=== PATIENT | female | born 1995 | race African-American/Black ===

== ENCOUNTER 2016-09-03 07:09 | Emergency (ER) | payer OTHER ==
[2016-09-03 07:20] VITALS: BMI 22.1
--- NOTE | 2016-09-03 07:32 | PDOC ---
History of Present Illness - General History Source: Patient Exam Limitations: No Limitations - History of Present Illness Initial Comments: 09/03/16 07:55 The patient is a 20 year old female, with a significant past medical history of a prior right hand injury, who presents to the emergency department with generalized weakness and tingling on the right hand over the last couple of days. She describes her generalized weakness as a tiresome sensation throughout her body. She describes her right hand tingling as intermittent in nature, which is exacerbated when she doesn't move it and relieved when she does. She does not remember the last time she had her menstrual period as she has been on control. She denies any other kind of complaints. The patient denies chest pain, shortness of breath, headache and dizziness. Denies fever, chills, nausea, vomit, diarrhea and constipation. Denies dysuria, frequency, urgency and hematuria. 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 s/p abnormal pap smear) Social history: No alcohol, tobacco or drug use reported <Wilfred Thompson - Last Filed: 09/03/16 07:55> - General History Source: Patient, Old Records Exam Limitations: No Limitations <Vernell Dailey - Last Filed: 09/03/16 09:10> - General Chief Complaint: Weakness Stated Complaint: RT HAND NUMBNESS, WEAKNESS Time Seen by Provider: 09/03/16 07:23 Past History <Wilfred Thompson - Last Filed: 09/03/16 07:55> - Past Medical History Anemia: No Asthma: No Cancer: No Cardiac Disorders: No CVA: No COPD: No CHF: No Dementia: No Diabetes: No GI Disorders: No Disorders: No HTN: No Hypercholesterolemia: No Liver Disease: No Seizures: No Thyroid Disease: No Other medical history: DENIES. - Immunization History Immunization Up to Date: Yes - Psycho/Social/Smoking Cessation Hx Anxiety: No Suicidal Ideation: No Smoking History: Never smoked Have you smoked in the past 12 months: No Hx Alcohol Use: No Drug/Substance Use Hx: No Substance Use Type: None Hx Substance Use Treatment: No <Vernell Dailey - Last Filed: 09/03/16 09:10> - Past Medical History Allergies/Adverse Reactions: Allergies Allergy/AdvReac Type Severity Reaction Status Date / Time No Known Drug Allergies Allergy Verified 09/03/16 07:13 Home Medications: Ambulatory Orders NK [No Known Home Medication] 09/03/16 Review of Systems - Review of Systems Able to Perform ROS?: Yes Comments:: 09/03/16 07:56 GENERAL/CONSTITUTIONAL: +Generalized weakness. No fever or chills. HEAD, EYES, EARS, NOSE AND THROAT: No change in vision. No ear pain or discharge. No sore throat. CARDIOVASCULAR: No chest pain or shortness of breath RESPIRATORY: No cough, wheezing, or hemoptysis. GASTROINTESTINAL: No nausea, vomiting, diarrhea or constipation. GENITOURINARY: No dysuria, frequency, or change in urination. MUSCULOSKELETAL: No joint or muscle swelling or pain. No neck or back pain. SKIN: No rash NEUROLOGIC: +Right hand tingling. No headache, vertigo, loss of consciousness. ENDOCRINE: No increased thirst. No abnormal weight change HEMATOLOGIC/LYMPHATIC: No anemia, easy bleeding, or history of blood clots. ALLERGIC/IMMUNOLOGIC: No hives or skin allergy. <Wilfred Thompson - Last Filed: 09/03/16 07:55> *Physical Exam - Vital Signs Last Vital Signs Temp Pulse Resp BP Pulse Ox 98.2 F 99 H 19 118/86 99 09/03/16 07:14 09/03/16 07:14 09/03/16 07:14 09/03/16 07:14 09/03/16 07:14 - Physical Exam Comments: 09/03/16 07:56 GENERAL: Awake, alert, and fully oriented, in no acute distress HEAD: No signs of trauma, normocephalic, atraumatic EYES: PERRLA, EOMI, sclera anicteric, conjunctiva clear ENT: Auricles normal inspection, hearing grossly normal, nares patent, oropharynx clear without exudates. Moist mucosa NECK: Normal ROM, supple, no lymphadenopathy, JVD, or masses LUNGS: No distress, speaks full sentences, clear to auscultation bilaterally HEART: Regular rate and rhythm, normal S1 and S2, no murmurs, rubs or gallops, peripheral pulses normal and equal bilaterally. ABDOMEN: Soft, nontender, normoactive bowel sounds. No guarding, no rebound. No masses EXTREMITIES: Normal inspection, Normal range of motion, no edema. No clubbing or cyanosis. NEUROLOGICAL: Cranial nerves II through XII grossly intact. Normal speech, normal gait, no focal sensorimotor deficits SKIN: Warm, Dry, normal turgor, no rashes or lesions noted. <Wilfred Thompson - Last Filed: 09/03/16 07:55> - Vital Signs Last Vital Signs Temp Pulse Resp BP Pulse Ox 98.2 F 99 H 19 118/86 99 09/03/16 07:14 09/03/16 07:14 09/03/16 07:14 09/03/16 07:14 09/03/16 07:14 <Vernell Dailey - Last Filed: 09/03/16 09:10> ED Treatment Course - LABORATORY CBC & Chemistry Diagram: 09/03/16 08:03 09/03/16 08:03 <Vernell Dailey - Last Filed: 09/03/16 09:10> Medical Decision Making - Medical Decision Making 09/03/16 07:51 20-year-old female with no significant past medical history who presents to the emergency department with complaints of generalized weakness 2 days and intermittent tingling to her right hand the same period of time. Differential diagnosis includes but is not limited to: , anemia, electrolyte abnormality, cervical radiculopathy, toxic/metabolic derangement. Plan: 1. Urine analysis and urine 2. Labs 3. Observe and reevaluate 09/03/16 09:05 Addendum: The labs are reviewed and are noted in the EMR. Discussed the results of all of the patient's labs with her. The urine analysis shows white blood cells and red blood cells and moderate epithelial cells but is negative for nitrite and the patient is asymptomatic therefore will not treat for urinary tract infection. The plan is to discharge the patient home. She should follow- up with her primary care physician and I have advised her to do so. I have also advised her to return to the emergency department if her symptoms persist, worsen, or new symptoms arise. <Vernell Dailey - Last Filed: 09/03/16 09:10> *DC/Admit/Observation/Transfer - Attestations Scribe Attestion: 09/03/16 07:57 Documentation prepared by Wilfred Thompson, acting as medical laboratory assistant for Vernell Dailey MD <JayWilfred Rivas - Last Filed: 09/03/16 07:55> - Discharge Dispostion Admit: No - Attestations Physician Attestion: 09/03/16 07:54 I, Dr. Vernell Dailey, attest that the scribes documentation that appears above has been prepared under my direction and personally reviewed by me in its entirety. I confirmed that the note above accurately reflects all work, treatment, procedures, and medical decision-making performed by me. <Vernell Dailey - Last Filed: 09/03/16 09:10> Diagnosis at time of Disposition: Weakness Hand tingling Qualifiers: Laterality: right Qualified Code(s): R20.2 - Paresthesia of skin - Discharge Dispostion Disposition: HOME Condition at time of disposition: Stable - Referrals Referrals: Lj Ha MD [Primary Care Provider] - - Patient Instructions Additional Instructions: Follow-up with your primary care physician. Return to the ED if your symptoms persist, worsen or new symptoms arise. - Post Discharge Activity Work/School Note: Back to School
[2016-09-03 08:19] LABS: BASOPHIL 0.8 % (0-2.0); EOSINOPHIL 7.1 % (0-4.5); MCH 30.6 pg (25.7-33.7); MCHC 34.2 g/dl (32.0-36.0); MEAN CELL VOLUME 89.4 fl (80-96); MEAN PLT VOLUME 8.3 fl (7.5-11.1); NEUTROPHILS 49.4 % (42.8-82.8); PLATELET COUNT 188 K/MM3 (134-434); RDW 12.8 % (11.6-15.6); WHITE BLOOD COUNT 6.1 K/mm3 (4.0-10.0)
[2016-09-03 08:32] LABS: URINE APPEARANCE CLOUDY; URINE BILIRUBIN NEGATIVE (NEGATIVE); URINE COLOR YELLOW; URINE GLUCOSE (UA) NEGATIVE (NEGATIVE); URINE KETONE NEGATIVE (NEGATIVE); URINE NITRITE NEGATIVE (NEGATIVE); URINE PROTEIN NEGATIVE (NEGATIVE); URINE UROBILINOGEN NEGATIVE E.U./dl (0.2-1.0)
[2016-09-03 08:46] LABS: URINE BLOOD 1+ (NEGATIVE); URINE LEUK ESTERASE 3+ (NEGATIVE)
[2016-09-03 08:48] LABS: CALCIUM 8.9 mg/dL (8.5-10.1); CREATININE 0.8 mg/dL (0.55-1.02); MAGNESIUM 2.1 mg/dL (1.8-2.4); PHOSPHOROUS 3.3 mg/dL (2.5-4.9)
[2016-09-03 08:52] LABS: URINE BACTERIA RARE /hpf (NONE SEEN); URINE MUCUS FEW; URINE RBC 12 /hpf (0-3); URINE WBC 37 /hpf (3-5)
[2016-09-03 09:49] VITALS: BP 118/78; PULSE 86; TEMP 98.3
== END 2016-09-03 09:49 | disposition home or self-care (01) ==
LOC: JER 07:09
DX: R20.2 Paresthesia of skin (principal)
CPT/HCPCS: 36415; 80048; 81003; 81015; 83735; 84100; 84703; 85025; 99282-25

== ENCOUNTER 2020-12-29 02:50 | Inpatient (IN) | payer OTHER ==
[2020-12-29 06:11] VITALS: BMI 32.5
[2020-12-29] MEDS ORDERED: PROMETHAZINE HCL 25 MG/1 ML VIAL IVPB ONE (07:30)
[2020-12-29] MEDS ORDERED: ELECTROLYTE-148 SOLN 1,000 ML IV SCH (07:30)
[2020-12-29] MEDS ORDERED: BUTORPHANOL TARTRATE 2 MG/ML VIAL IVPB ONE (07:30)
[2020-12-29] MEDS ORDERED: BUTORPHANOL TARTRATE 2 MG/ML VIAL ONE (07:33)
[2020-12-29] MEDS ORDERED: PROMETHAZINE HCL 25 MG/1 ML VIAL ONE (07:34)
[2020-12-29 09:15] LABS: BASO % 0.6 % (0-2.0); EOS % 0.2 % (0-4.5); HEMATOCRIT 39.4 % (32.4-45.2); HEMOGLOBIN 13.3 GM/dL (10.7-15.3); LYMPH % 7.9 % (8-40); MCH 29.3 pg (25.7-33.7); MCHC 33.8 g/dl (32.0-36.0); MEAN CELL VOLUME 86.7 fl (80-96); MEAN PLT VOLUME 8.7 fl (7.5-11.1); MONO % 6.1 % (3.8-10.2); NEUT % 85.2 % (42.8-82.8); PLATELET COUNT 162 10^3/uL (134-434); RBC 4.54 M/mm3 (3.60-5.2); RDW 13.8 % (11.6-15.6); WHITE BLOOD COUNT 12.7 K/mm3 (4.0-10.0)
[2020-12-29 09:22] LABS: INR 0.94 (0.83-1.09); PROTHROMBIN TIME (PATIENT) 11.6 SEC (9.7-13.0)
[2020-12-29 09:25] LABS: ACTIVATED PTT 24.8 SECONDS (25.2-36.5)
[2020-12-29 09:40] LABS: CALCIUM 9.2 mg/dL (8.5-10.1)
[2020-12-29 09:41] LABS: BLOOD UREA NITROGEN 6.5 mg/dL (7-18)
[2020-12-29 09:44] LABS: CREATININE 0.4 mg/dL (0.55-1.3)
[2020-12-29] MEDS ORDERED: OXYTOCIN 30 UNITS in 0.9% NS 30 UNIT/500 ML INFUS.BAG IVPB SCH (09:45)
[2020-12-29] MEDS ORDERED: BUPIVACAINE HCL/PF 0.25% (2.5MG/ML) 10 ML VIAL ONE (10:36)
[2020-12-29] MEDS ORDERED: FENTANYL/BUPIVACAINE/NS/PF - PCEA - 50 ML DISP.SYRIN EP ONE (10:47)
[2020-12-29] MEDS ORDERED: NALOXONE HCL 0.4 MG/ML VIAL IVPUSH PRN (12:26)
[2020-12-29] MEDS ORDERED: FENTANYL/BUPIVACAINE/NS/PF - PCEA - 50 ML DISP.SYRIN EP SCH ×2 (12:30→13:35)
[2020-12-29] MEDS ORDERED: OXYTOCIN 20 UNITS in 0.9% NS 20 UNIT/1,000 ML INFUS.BAG IV ONE (13:30)
[2020-12-29] MEDS ORDERED: CEFAZOLIN 2 GM/D5W 2 GM/50 ML ML IVPB ONE (14:18)
[2020-12-29] MEDS ORDERED: WITCH HAZEL 50% (TUCKS) 40 PAD/JAR PAD TP PRN (14:41)
[2020-12-29] MEDS ORDERED: BENZOCAINE 20% 57 GM BOTTLE TP PRN (14:41)
[2020-12-29] MEDS ORDERED: BENZOCAINE 28 GM HEMORRHOIDAL OINTMENT TP PRN (14:41)
[2020-12-29] MEDS ORDERED: METHYLERGONOVINE MALEATE 0.2 MG/1 ML AMP IM PRN (14:41)
[2020-12-29] MEDS ORDERED: ceFAZolin 2 GRAM PREMIX BAG IVPB ONE (14:44)
[2020-12-29] MEDS ORDERED: OXYTOCIN 20 UNITS in 0.9% NS 20 UNIT/1,000 ML INFUS.BAG IV SCH (14:45)
[2020-12-29 15:13] LABS: CORD HCO3 26.7 mmHg (20-29); CORD PCO2 61.5 mmHg (30-78); CORD pH 7.255 (7.14-7.44)
[2020-12-29 15:16] LABS: CORD HCO3 23.6 mmHg (20-29); CORD PCO2 43.4 mmHg (30-78); CORD pH 7.354 (7.14-7.44)
[2020-12-29] MEDS: ACETAMINOPHEN 325 MG TABLET (FP) PO PRN (21:15)
[2020-12-29] MEDS: IBUPROFEN 600 MG TABLET (FP) PO PRN (21:15)
[2020-12-30] MEDS: ACETAMINOPHEN 325 MG TABLET (FP) PO PRN ×3 (04:49→17:38)
[2020-12-30] MEDS: IBUPROFEN 600 MG TABLET (FP) PO PRN ×3 (04:50→17:39)
[2020-12-30] MEDS: PRENATAL VITAMINS W/ FOLIC ACID TABLET (FP) PO SCH (09:11)
[2020-12-30 10:15] LABS: BASO % 0.5 % (0-2.0); EOS % 1.9 % (0-4.5); HEMATOCRIT 37.9 % (32.4-45.2); HEMOGLOBIN 12.8 GM/dL (10.7-15.3); LYMPH % 16.5 % (8-40); MCH 29.4 pg (25.7-33.7); MCHC 33.7 g/dl (32.0-36.0); MEAN CELL VOLUME 87.2 fl (80-96); MEAN PLT VOLUME 9.1 fl (7.5-11.1); NEUT % 72.1 % (42.8-82.8); PLATELET COUNT 165 10^3/uL (134-434); RBC 4.35 M/mm3 (3.60-5.2); RDW 13.8 % (11.6-15.6); WHITE BLOOD COUNT 12.3 K/mm3 (4.0-10.0)
[2020-12-30] MEDS ORDERED: SENNOSIDES/DOCUSATE COMBO (SENNA PLUS) TABLET (UD) PO PRN (22:00)
[2020-12-31] MEDS: PRENATAL VITAMINS W/ FOLIC ACID TABLET (FP) PO SCH (09:57)
[2020-12-31 10:41] VITALS: BP 123/88; PULSE 84; TEMP 98
[2020-12-31] MEDS: ACETAMINOPHEN 325 MG TABLET (FP) PO PRN (11:25)
[2020-12-31] MEDS: IBUPROFEN 600 MG TABLET (FP) PO PRN (11:25)
== END 2020-12-31 12:45 | disposition home or self-care (01) | DRG 560 ==
LOC: JDEL 02:50 → JLDR 07:25 → J3W 16:30
PROVIDERS: ADMIT Obstetrics & Gynecology; ATTEND Obstetrics & Gynecology
PROC: 10907ZC Drainage of Amniotic Fluid, Therapeutic from Products of Conception, Via Natural or Artificial Opening (ICD-10-PCS; principal; 2020-12-29)
PROC: 10E0XZZ Delivery of Products of Conception, External Approach (ICD-10-PCS; 2020-12-29)
PROC: 0W8NXZZ Division of Female Perineum, External Approach (ICD-10-PCS; 2020-12-29)
DX: O80 Encounter for full-term uncomplicated delivery (principal); Z3A.40 40 weeks gestation of pregnancy; Z37.0 Single live birth
CPT/HCPCS: 36415; 36600; 59409; 80048; 82803; 85025; 85610; 85730; 86780; 86850; 86900; 86901; C9803; U0003; U0005

== ENCOUNTER 2023-08-06 08:54 | Emergency (ER) | payer OTHER ==
[2023-08-06 09:07] VITALS: BP 116/72; PULSE 69; RESP 14; TEMP 98.4; BMI 23.0
[2023-08-06] MEDS ORDERED: KETOROLAC TROMETHAMINE 30 MG/1 ML VIAL IM ONE (09:51)
[2023-08-06] MEDS ORDERED: KETOROLAC TROMETHAMINE 30 MG/1 ML VIAL ONE (10:18)
== END 2023-08-06 10:57 | disposition home or self-care (01) ==
LOC: JER 08:54 → JERFT 08:54
PROC: 3E0233Z Introduction of Anti-inflammatory into Muscle, Percutaneous Approach (ICD-10-PCS; principal; 2023-08-06)
DX: M25.551 Pain in right hip (principal); S70.01XA Contusion of right hip, initial encounter; W01.0XXA Fall on same level from slipping, tripping and stumbling without subsequent striking against object, initial encounter; Y92.219 Unspecified school as the place of occurrence of the external cause; Y99.0 Civilian activity done for income or pay
CPT/HCPCS: 73502-TC-RT-FY; 99284-25

== ENCOUNTER 2024-04-11 15:40 | Emergency (ER) | payer OTHER ==
[2024-04-11 15:52] VITALS: BP 130/85; PULSE 100; RESP 18; TEMP 99.8; BMI 23.0
[2024-04-11] MEDS ORDERED: ACETAMINOPHEN 500 MG TABLET (FP) ONE (16:15)
[2024-04-11] MEDS: ACETAMINOPHEN 500 MG TABLET (FP) PO ONE (16:19)
== END 2024-04-11 17:17 | disposition home or self-care (01) ==
LOC: JERFT 15:40
DX: R05.9 Cough, unspecified (principal); R09.81 Nasal congestion; M79.10 Myalgia, unspecified site; R68.83 Chills (without fever); B97.4 Respiratory syncytial virus as the cause of diseases classified elsewhere; J11.1 Influenza due to unidentified influenza virus with other respiratory manifestations; Z20.822 Contact with and (suspected) exposure to COVID-19
CPT/HCPCS: 0241U-QW; 99283-25